=== PATIENT | female | born 1980 | race Caucasian/White ===

== ENCOUNTER → 2017-12-24 18:12 | Outpatient (CLI) | payer OTHER, MEDICAID, SELFPAY | PROVIDERS: Visit Provider Physician Assistant | DX: N30.01 Acute cystitis with hematuria (principal) | CPT/HCPCS: 87077; 87086; 87186 ==

== ENCOUNTER → 2018-05-01 15:57 | Outpatient (CLI) | payer OTHER, MEDICAID, SELFPAY | PROVIDERS: Visit Provider Physician Assistant | DX: R30.0 Dysuria (principal) | CPT/HCPCS: 87077; 87086; 87186 ==

== ENCOUNTER 2018-12-12 17:28 | Emergency (ER) | payer OTHER, MEDICAID, SELFPAY ==
[2018-12-12 17:33] VITALS: BP 130/90; PULSE 89; RESP 22; TEMP 36.8; O2SAT 96; BMI 25.8
--- NOTE | 2018-12-12 17:46 | DI.RAD.S_ITS ---
PROCEDURE: XR HIP W PEL IF DONE LT 2V INDICATIONS: pain/step off injury, fall TECHNIQUE: AP pelvis with lateral view(s) of the left hip(s). COMPARISON: None. FINDINGS: Bones: No fractures or dislocations. Pelvic ring appears intact. No suspicious bony lesions. Soft tissues: The visualized bowel gas pattern is normal. No suspicious soft tissue calcifications. IMPRESSION: No fracture. No osseous lesion. If there are persistent symptoms or clinical suspicion for pathology, then repeat radiographs in 7-10 days or advanced imaging (CT, MRI or bone scan) should be considered for further evaluation. Dictated by: Yamel Maxwell MD, PhD on 12/12/2018 at 18:33 Approved by: Yamel Maxwell MD, PhD on 12/12/2018 at 18:33
--- NOTE | 2018-12-12 17:46 | DI.RAD.S_ITS ---
PROCEDURE: XR FOOT LT MIN 3V INDICATIONS: step off injury, medial pain TECHNIQUE: 3 views of the foot were acquired. COMPARISON: None. FINDINGS: Bones: No fractures or dislocations. No suspicious bony lesions. Soft tissues: No tibiotalar joint effusion. Achilles tendon appears normal. IMPRESSION: No fracture. No osseous lesion. If there are persistent symptoms or clinical suspicion for pathology, then repeat radiographs in 7-10 days or advanced imaging (CT, MRI or bone scan) should be considered for further evaluation. Dictated by: Yamel Maxwell MD, PhD on 12/12/2018 at 18:35 Approved by: Yamel Maxwell MD, PhD on 12/12/2018 at 18:35
--- NOTE | 2018-12-12 17:46 | DI.RAD.S_ITS ---
PROCEDURE: XR ANKLE LT MIN 3V INDICATIONS: step off injury, medial pain TECHNIQUE: 3 views of the ankle were acquired. COMPARISON: None. FINDINGS: Bones: No fractures or dislocations. Ankle mortise is normally aligned. No suspicious bony lesions. Soft tissues: No tibiotalar joint effusion. Achilles tendon appears normal. Soft tissue swelling is noted and ligamentous injury cannot be excluded. IMPRESSION: No fracture. No osseous lesion. If there are persistent symptoms or clinical suspicion for pathology, then repeat radiographs in 7-10 days or advanced imaging (CT, MRI or bone scan) should be considered for further evaluation. Dictated by: Yamel Maxwell MD, PhD on 12/12/2018 at 18:34 Approved by: Yamel Maxwell MD, PhD on 12/12/2018 at 18:34
[2018-12-12] MEDS: IBUPROFEN 400 MG TABLET 800 MG PO (17:54)
[2018-12-12] MEDS: CYCLOBENZAPRINE 10 MG TABLET PO (17:54)
--- NOTE | 2018-12-12 17:59 | ED.LOWEXIN ---
HPI - Extremity Injury (Lower) <Lourdes Win PA-C - Last Filed: 12/12/18 19:22> General Chief Complaint: Extremity Injury, Lower Stated Complaint: left ankle injury today Time Seen by Provider: 12/12/18 17:34 Source: patient Mode of arrival: ambulatory Limitations: no limitations History of Present Illness HPI Narrative: This 38-year-old female states that she stepped off a curb and rolled her left ankle, she thinks outward. She states that she fell backwards onto the left side of her bottom, does not think she hurt that area, but felt pain shoot up from her ankle area into her leg and back. She denies any head contusion, LOC, upper back or neck pain or any other injury. She states she did manage to walk here by putting pressure on other parts of her foot. She denies any possibility of , status post tubal ligation. She has not taken any medication with, denies any chronic medical problems. Related Data Allergies Allergy/AdvReac Type Severity Reaction Status Date / Time No Known Drug Allergies Allergy Verified 12/12/18 17:36 Review of Systems <Lourdes Win PA-C - Last Filed: 12/12/18 19:22> Review of Systems ROS Unobtainable: All systems reviewed & are unremarkable except as noted in HPI and below PFSH <Lourdes Win PA-C - Last Filed: 12/12/18 19:22> Medical History (Updated 12/12/18 @ 18:53 by Lourdes Win PA-C) Patient denies medical problems (Chronic) Status post tubal ligation (Chronic) Social History Smoking Status: Current every day smoker Social History Smoking Status: Current every day smoker Exam <Lourdes Win PA-C - Last Filed: 12/12/18 19:22> Narrative Exam Narrative: GENERAL APPEARANCE: Patient moaning and writhing PULMONARY: Coarse breath sounds with some generalized expiratory wheeze CV: Regular rhythm regular without murmur, normal S1 and S2, no S3 or S4 MUSCULOSKELETAL: No point tenderness over the thoracic, lumbar, or sacral spine. Full seated trunk flexion. Moderate tenderness over the left SI and gluteal area. Mild tenderness over the left lateral hip. She initially indicates tenderness with internal rotation of the hip but then does this spontaneously without tenderness. No tenderness over the left thigh or left knee. Full knee range of motion without tenderness. No reproducible tenderness over the left dorsey. Tender over the left medial ankle inferior and anterior to the malleolus as well as over the medial metatarsals. No tenderness over the lateral ankle, metatarsals, no tenderness over the toes. Normal dorsiflexion and plantar flexion of the toes, Achilles is intact by palpation NEUROVASCULAR: Left foot is warm and pink with intact pedal pulses, lower extremity sensation grossly intact DERMATOLOGIC: No abrasions or ecchymoses NEUROLOGIC: Bilateral patellar and Achilles DTRs 2+ Initial Vital Signs Initial Vital Signs: Vital Signs Temperature 98.3 F 12/12/18 17:33 Pulse Rate 89 12/12/18 17:33 Respiratory Rate 22 12/12/18 17:33 Blood Pressure 130/90 12/12/18 17:33 Pulse Oximetry 96 12/12/18 17:33 <Rajan Owen DO - Last Filed: 12/13/18 09:48> Initial Vital Signs Initial Vital Signs: Vital Signs Temperature 98.3 F 12/12/18 17:33 Pulse Rate 89 12/12/18 17:33 Respiratory Rate 22 12/12/18 17:33 Blood Pressure 130/90 12/12/18 17:33 Pulse Oximetry 96 12/12/18 17:33 Course <Lourdes Win PA-C - Last Filed: 12/12/18 19:22> Additional Information: Patient is able to ambulate wearing ankle immobilizer splint. Stressed importance of follow-up especially this is not improving in the next week as expected so she can get repeat imaging and referral if needed. Orders Ordered: Discontinued Medications Cyclobenzaprine HCl (Flexeril) 10 mg PO NOW ONE Stop: 12/12/18 17:48 Last Admin: 12/12/18 17:54 Dose: 10 mg Ibuprofen (Advil) 800 mg PO NOW ONE Stop: 12/12/18 17:48 Last Admin: 12/12/18 17:54 Dose: 800 mg Vital Signs - 8 hr 12/12/18 17:33 Temperature 98.3 F Pulse Rate 89 Respiratory Rate 22 Blood Pressure 130/90 Pulse Oximetry 96 <Rajan Owen DO - Last Filed: 12/13/18 09:48> Orders Ordered: Discontinued Medications Cyclobenzaprine HCl (Flexeril) 10 mg PO NOW ONE Stop: 12/12/18 17:48 Last Admin: 12/12/18 17:54 Dose: 10 mg Ibuprofen (Advil) 800 mg PO NOW ONE Stop: 12/12/18 17:48 Last Admin: 12/12/18 17:54 Dose: 800 mg Vital Signs - 8 hr 12/12/18 17:33 Temperature 98.3 F Pulse Rate 89 Respiratory Rate 22 Blood Pressure 130/90 Pulse Oximetry 96 MDM - Extremity Injury (Lower) <Lourdes Win PA-C - Last Filed: 12/12/18 19:22> Imaging Data L. ankle: Radiologist's impression: [address] [address] XRay Report Signed Patient: Riri Hummel RMR#: [id number] : 1980Acct:[id number] Age/Sex: 38 / FDate of Service: 12/12/18 Loc: ED Accession Number: [id number] Procedure: XR ankle LT min 3V Ordering Provider: Lourdes Win P.A-C PROCEDURE: XR ANKLE LT MIN 3V INDICATIONS: step off injury, medial pain TECHNIQUE: 3 views of the ankle were acquired. COMPARISON: None. FINDINGS: Bones: No fractures or dislocations. Ankle mortise is normally aligned. No suspicious bony lesions. Soft tissues: No tibiotalar joint effusion. Achilles tendon appears normal. Soft tissue swelling is noted and ligamentous injury cannot be excluded. IMPRESSION: No fracture. No osseous lesion. If there are persistent symptoms or clinical suspicion for pathology, then repeat radiographs in 7-10 days or advanced imaging (CT, MRI or bone scan) should be considered for further evaluation. Dictated by: Yamel Maxwell MD, PhD on 12/12/2018 at 18:34 Approved by: Yamel Maxwell MD, PhD on 12/12/2018 at 18:34 L foot: Radiologist's impression: [address] [address] XRay Report Signed Patient: Riri Hummel RMR#: [id number] : 1980Acct:[id number] Age/Sex: 38 / FDate of Service: 12/12/18 Loc: ED Accession Number: [id number] Procedure: XR foot LT min 3V Ordering Provider: Lourdes Win P.A-C PROCEDURE: XR FOOT LT MIN 3V INDICATIONS: step off injury, medial pain TECHNIQUE: 3 views of the foot were acquired. COMPARISON: None. FINDINGS: Bones: No fractures or dislocations. No suspicious bony lesions. Soft tissues: No tibiotalar joint effusion. Achilles tendon appears normal. IMPRESSION: No fracture. No osseous lesion. If there are persistent symptoms or clinical suspicion for pathology, then repeat radiographs in 7-10 days or advanced imaging (CT, MRI or bone scan) should be considered for further evaluation. Dictated by: Yamel Maxwell MD, PhD on 12/12/2018 at 18:35 Approved by: Yamel Maxwell MD, PhD on 12/12/2018 at 18:35 L. hip: Radiologist's impression: [facility] DATE TYPE STATUS AUTHOR Hx 12/12/18 17:46 Yamel Maxwell 12/12/18 17:46 Yamel Maxwell 12/12/18 17:46 Yamel Maxwell Joy R 38, 1980 [facility], ED.LOC - Main ED: R08 175.26cm 79.379kg BMI: 25.8kg/m? Extremity Injury, Lower Search Chart No Data to Display No Data to Display ONSET Today 17:33 Riri Hummel 38 F 1980 [place] [address] XRay Report Signed Patient: Riri Hummel RMR#: [id number] : 1980Acct:[id number] Age/Sex: 38 / FDate of Service: 12/12/18 Loc: ED Accession Number: [id number] Procedure: XR hip w pel if done LT 2V Ordering Provider: Lourdes Win P.A-C PROCEDURE: XR HIP W PEL IF DONE LT 2V INDICATIONS: pain/step off injury, fall TECHNIQUE: AP pelvis with lateral view(s) of the left hip(s). COMPARISON: None. FINDINGS: Bones: No fractures or dislocations. Pelvic ring appears intact. No suspicious bony lesions. Soft tissues: The visualized bowel gas pattern is normal. No suspicious soft tissue calcifications. IMPRESSION: No fracture. No osseous lesion. If there are persistent symptoms or clinical suspicion for pathology, then repeat radiographs in 7-10 days or advanced imaging (CT, MRI or bone scan) should be considered for further evaluation. Dictated by: Yamel Maxwell MD, PhD on 12/12/2018 at 18:33 Approved by: Yamel Maxwell MD, PhD on 12/12/2018 at 18:33 Discharge Plan Departure Patient Disposition: Home Clinical Impression: Ankle sprain and strain, Contusion of hip with intact skin Discharge Date/Time: 12/12/18 19:02 Interventions: ED Discharge Assessment Last Done: 12/12/18 19:00 Instructions: DI for Ankle Sprain, DI for Hip Pain Activity Restrictions/Additional Instructions: Please take ibuprofen, 600-800 mg every 8 hours to help with pain and inflammation. Apply ice and heat. You can apply topical cream such as Aspercreme or use [id number]-[id number] lidocaine patches. Please use the ankle immobilizer that we gave you when walking, walking gently on flat surfaces okay but avoid uneven surfaces. As we talked about, you should follow-up in about a week and have repeat x-rays if this is not significantly improved as sometimes injuries may not appear until later. You may also need further imaging or workup if this is not getting better. Please call the [facility] health human resources operations director at [phone] to get help with a referral to primary care provider. <Rajan Owen DO - Last Filed: 12/13/18 09:48> Cosign ED Attending Kimberlyature Attestation: I was immediately available in the department for consultation. Documentation has been reviewed. I agree with assessment and plan.
--- NOTE | 2018-12-12 18:04 | ED_ITS ---
HPI - Extremity Injury (Lower) <Lourdes Win PA-C - Last Filed: 12/12/18 19:22> General Chief Complaint: Extremity Injury, Lower Stated Complaint: left ankle injury today Time Seen by Provider: 12/12/18 17:34 Source: patient Mode of arrival: ambulatory Limitations: no limitations History of Present Illness HPI Narrative: This 38-year-old female states that she stepped off a curb and ro lled her left ankle, she thinks outward. She states that she fell backwards onto the left side of her bottom, does not think she hurt that area, but felt pain shoot up from her ankle area into her leg and back. She denies any head contusion, LOC, upper back or neck pain or any other injury. She states she did manage to walk here by putting pressure on other parts of her foot. She denies any possibility of , status post tubal ligation. She has not taken any medication with, denies any chronic medical problems. Related Data Allergies Allergy/AdvReac Type Severity Reaction Status Date / Time No Known Drug Allergies Allergy Verified 12/12/18 17:36 Review of Systems <Lourdes Win PA-C - Last Filed: 12/12/18 19:22> Review of Systems ROS Unobtainable: All systems reviewed & are unremarkable except as noted in HPI and below PFSH <Lourdes Win PA-C - Last Filed: 12/12/18 19:22> Medical History (Updated 12/12/18 @ 18:53 by Lourdes Win PA-C) Patient denies medical problems (Chronic) Status post tubal ligation (Chronic) Social History Smoking Status: Current every day smoker Social History Smoking Status: Current every day smoker Exam <Lourdes Win PA-C - Last Filed: 12/12/18 19:22> Narrative Exam Narrative: GENERAL APPEARANCE: Patient moaning and writhing PULMONARY: Coarse breath sounds with some generalized expiratory wheeze CV: Regular rhythm regular without murmur, normal S1 and S2, no S3 or S4 MUSCULOSKELETAL: No point tenderness over the thoracic, lumbar, or sacral spine. Full seated trunk flexion. Moderate tenderness over the left SI and gluteal area. Mild tenderness over the left lateral hip. She initially indicates tenderness with internal rotation of the hip but then does this spontaneously without tenderness. No tenderness over the left thigh or left knee. Full knee range of motion without tenderness. No reproducible tenderness over the left dorsey. Tender over the left medial ankle inferior and anterior to the malleolus as well as over the medial metatarsals. No tenderness over the lateral ankle, metatarsals, no tenderness over the toes. Normal dorsiflexion and plantar flexion of the toes, Achilles is intact by palpation NEUROVASCULAR: Left foot is warm and pink with intact pedal pulses, lower extremity sensation grossly intact DERMATOLOGIC: No abrasions or ecchymoses NEUROLOGIC: Bilateral patellar and Achilles DTRs 2+ Initial Vital Signs Initial Vital Signs: Vital Signs Temperature 98.3 F 12/12/18 17:33 Pulse Rate 89 12/12/18 17:33 Respiratory Rate 22 12/12/18 17:33 Blood Pressure 130/90 12/12/18 17:33 Pulse Oximetry 96 12/12/18 17:33 <Rajan Owen DO - Last Filed: 12/13/18 09:48> Initial Vital Signs Initial Vital Signs: Vital Signs Temperature 98.3 F 12/12/18 17:33 Pulse Rate 89 12/12/18 17:33 Respiratory Rate 22 12/12/18 17:33 Blood Pressure 130/90 12/12/18 17:33 Pulse Oximetry 96 12/12/18 17:33 Course <Lourdes Win PA-C - Last Filed: 12/12/18 19:22> Additional Information: Patient is able to ambulate wearing ankle immobilizer splint. Stressed importance of follow-up especially this is not improving in the next week as expected so she can get repeat imaging and referral if needed. Orders Ordered: Discontinued Medications Cyclobenzaprine HCl (Flexeril) 10 mg PO NOW ONE Stop: 12/12/18 17:48 Last Admin: 12/12/18 17:54 Dose: 10 mg Ibuprofen (Advil) 800 mg PO NOW ONE Stop: 12/12/18 17:48 Last Admin: 12/12/18 17:54 Dose: 800 mg Vital Signs - 8 hr 12/12/18 17:33 Temperature 98.3 F Pulse Rate 89 Respiratory Rate 22 Blood Pressure 130/90 Pulse Oximetry 96 <Rajan Owen DO - Last Filed: 12/13/18 09:48> Orders Ordered: Discontinued Medications Cyclobenzaprine HCl (Flexeril) 10 mg PO NOW ONE Stop: 12/12/18 17:48 Last Admin: 12/12/18 17:54 Dose: 10 mg Ibuprofen (Advil) 800 mg PO NOW ONE Stop: 12/12/18 17:48 Last Admin: 12/12/18 17:54 Dose: 800 mg Vital Signs - 8 hr 12/12/18 17:33 Temperature 98.3 F Pulse Rate 89 Respiratory Rate 22 Blood Pressure 130/90 Pulse Oximetry 96 MDM - Extremity Injury (Lower) <Lourdes Win PA-C - Last Filed: 12/12/18 19:22> Imaging Data L. ankle: Radiologist's impression: [address] [address] XRay Report Signed Patient: Riri Hummel RMR#: [id number] : 1980Acct:[id number] Age/Sex: 38 / FDate of Service: 12/12/18 Loc: ED Accession Number: [id number] Procedure: XR ankle LT min 3V Ordering Provider: Lourdes Win P.A-C PROCEDURE: XR ANKLE LT MIN 3V INDICATIONS: step off injury, medial pain TECHNIQUE: 3 views of the ankle were acquired. COMPARISON: None. FINDINGS: Bones: No fractures or dislocations. Ankle mortise is normally aligned. No suspicious bony lesions. Soft tissues: No tibiotalar joint effusion. Achilles tendon appears normal. Soft tissue swelling is noted and ligamentous injury cannot be excluded. IMPRESSION: No fracture. No osseous lesion. If there are persistent symptoms or clinical suspicion for pathology, then repeat radiographs in 7-10 days or advanced imaging (CT, MRI or bone scan) should be considered for further evaluation. Dictated by: Yamel Maxwell MD, PhD on 12/12/2018 at 18:34 Approved by: Yamel Maxwell MD, PhD on 12/12/2018 at 18:34 L foot: Radiologist's impression: [address] [address] XRay Report Signed Patient: Riri Hummel RMR#: [id number] : 1980Acct:[id number] Age/Sex: 38 / FDate of Service: 12/12/18 Loc: ED Accession Number: [id number] Procedure: XR foot LT min 3V Ordering Provider: Lourdes Win P.A-C PROCEDURE: XR FOOT LT MIN 3V INDICATIONS: step off injury, medial pain TECHNIQUE: 3 views of the foot were acquired. COMPARISON: None. FINDINGS: Bones: No fractures or dislocations. No suspicious bony lesions. Soft tissues: No tibiotalar joint effusion. Achilles tendon appears normal. IMPRESSION: No fracture. No osseous lesion. If there are persistent symptoms or clinical suspicion for pathology, then repeat radiographs in 7-10 days or advanced imaging (CT, MRI or bone scan) should be considered for further evaluation. Dictated by: Yamel Maxwell MD, PhD on 12/12/2018 at 18:35 Approved by: Yamel Maxwell MD, PhD on 12/12/2018 at 18:35 L. hip: Radiologist's impression: Chart [facility] Diagn[facility] DATE TYPE STATUS AUTHOR Hx 12/12/18 17:46 Yamel Maxwell 12/12/18 17:46 Yamel Maxwell 12/12/18 17:46 Yamel Maxwell Joy R 38, 1980 [facility] ER, ED.LOC - Main ED: R08 175.26cm 79.379kg BMI: 25.8kg/m? Extremity Injury, Lower Search Chart No Data to Display No Data to Display ONSET Today 17:33 Riri Hummel 38 F 1980 [place] [address] XRay Report Signed Patient: Riri Hummel RMR#: [id number] : 1980Acct:[id number] Age/Sex: 38 / FDate of Service: 12/12/18 Loc: ED Accession Number: [id number] Procedure: XR hip w pel if done LT 2V Ordering Provider: Lourdes Win P.A-C PROCEDURE: XR HIP W PEL IF DONE LT 2V INDICATIONS: pain/step off injury, fall TECHNIQUE: AP pelvis with lateral view(s) of the left hip(s). COMPARISON: None. FINDINGS: Bones: No fractures or dislocations. Pelvic ring appears intact. No suspicious bony lesions. Soft tissues: The visualized bowel gas pattern is normal. No suspicious soft tissue calcifications. IMPRESSION: No fracture. No osseous lesion. If there are persistent symptoms or clinical suspicion for pathology, then repeat radiographs in 7-10 days or advanced imaging (CT, MRI or bone scan) should be considered for further evaluation. Dictated by: Yamel Maxwell MD, PhD on 12/12/2018 at 18:33 Approved by: Yamel Maxwell MD, PhD on 12/12/2018 at 18:33 Discharge Plan Departure Patient Disposition: Home Clinical Impression: Ankle sprain and strain, Contusion of hip with intact skin Discharge Date/Time: 12/12/18 19:02 Interventions: ED Discharge Assessment Last Done: 12/12/18 19:00 Instructions: DI for Ankle Sprain, DI for Hip Pain Activity Restrictions/Additional Instructions: Please take ibuprofen, 600-800 mg every 8 hours to help with pain and inflammation. Apply ice and heat. You can apply topical cream such as Aspercreme or use [id number] lidocaine patches. Please use the ankle immobilizer that we gave you when walking, walking gently on flat surfaces okay but avoid uneven surfaces. As we talked about, you should follow-up in about a week and have repeat x-rays if this is not significantly improved as sometimes injuries may not appear until later. You may also need further imaging or workup if this is not getting better. Please call the [facility] health human resources compensation analyst at [phone] to get help with a referral to primary care provider. <Rajan Owen DO - Last Filed: 12/13/18 09:48> Cosjen ED Attending Madeline Attestation: I was immediately available in the department for consultation. Documentation has been reviewed. I agree with assessment and plan.
== END 2018-12-12 19:02 | disposition home or self-care (01) ==
PROVIDERS: Emergency Provider Internal Medicine
DX: S93.402A Sprain of unspecified ligament of left ankle, initial encounter (principal); S70.00XA Contusion of unspecified hip, initial encounter; W19.XXXA Unspecified fall, initial encounter
CPT/HCPCS: 73502; 73610; 73630; 99282; 99283